=== PATIENT | female | born 1975 | race Caucasian/White ===

== ENCOUNTER → 2023-04-06 | Outpatient (CLI) | payer BC, SELFPAY ==
[2023-04-06 17:09] LABS: Absolute Lymphocyte Count 3.46 X10^3/uL (0.83-4.51); Absolute Neutrophil Count 4.4 X10^3/uL (2.0-7.7); Basophil# 0.06 X10^3/uL; Basophil% 0.7 % (0-1); Eosinophils% 3.4 % (0-5); Hematocrit 45.8 % (37-47); Hemoglobin 15.1 g/dL (12.0-15.0); Lymphocyte # 3.46 X10^3/ul (0.83-4.51); Lymphocyte % 39.1 % (19-41); Mean Corpuscular Hgb 31.9 pg (27.0-32.0); Mean Corpuscular Volume 96.6 fL (81-99); Mean Platelet Vol. 10.1 fl (6.2-12.0); Monocyte% 6.8 % (0-10); NRBC Flagged by Analyzer 0 % (0-5); Neutrophil # 4.39 X10^3/uL (2.7-7.7); Neutrophil % 49.7 % (47-70); Platelet Count 385 K/mm3 (150-450); RBC Distribution Width CV 13.2 % (11.6-14.6); RBC Distribution Width SD 47.2 fl (35.1-43.9); Red Blood Count 4.74 M/mm3 (4.2-5.4); White Blood Count 8.8 K/mm3 (4.4-11.0)
[2023-04-06 17:26] LABS: ALB/GLOB Ratio 1.1 RATIO (0.9-2.4); AST(SGOT) 15 U/L (15-37); Alanine Aminotransfer ALT/SGPT 31 U/L (13-56); Albumin, Serum 3.9 g/dL (3.2-5.0); Alkaline Phosphatase 66 U/L (45-117); Anion Gap 7 (5-15); BUN 13 mg/dL (7-18); BUN/Creat Ratio 13.9 RATIO (10-20); Calcium,Total 9.4 mg/dL (8.5-10.1); Chloride 105 mmol/L (98-107); Cholesterol 197 mg/dL (200); Creatinine, Serum 0.93 mg/dL (0.55-1.02); EST Glomerular Filtration Rate 69 mL/min (>60); Est Glom Filt Rate - Afr Amer 83 mL/min (>60); Globulin 3.7 g/dL (2.2-4.2); Glucose 91 mg/dL (74-106); High Density Lipoprotein 51 mg/dL; Potassium 3.7 mmol/L (3.5-5.1); Protein, Total 7.6 g/dL (6.4-8.2); Sodium Level 140 mmol/L (136-145); Triglycerides 94 mg/dL; Very Low Density Lipoprotein 19 mg/dL (5-40)
== END | disposition home or self-care (01) ==
LOC: BIMLAB 15:38
PROVIDERS: PCP Internal Medicine; Visit Provider Internal Medicine
DX: I10 Essential (primary) hypertension (principal)
CPT/HCPCS: 36415; 80053; 80061; 85025

== ENCOUNTER → 2023-04-07 | Outpatient (CLI) | payer BC, SELFPAY ==
--- NOTE | 2023-04-07 15:16 | BI_ITS ---
MAMMOGRAPHY - BILATERAL SCREENING REASON FOR EXAM: Female, 47 years old. Routine annual screening examination. PERTINENT HISTORY: Non-contributory. Prior left breast biopsy. TECHNIQUE: Digital bilateral breast doni (3D mammographic acquisition) in the CC and MLO projections. 2-D mediolateral oblique (MLO) and craniocaudad (CC) views of both breasts were obtained. CAD: Full Field Digital Mammography with Computer Added Detection was performed. COMPARISON: Comparison is made with prior examination dated May 08, 2020. FINDINGS: Breast Composition: The breasts are heterogeneously dense, which may obscure small masses. There are no dominant masses or suspicious calcifications. A tissue clip marker is seen in the upper lateral aspect the left breast. Stable small benign-appearing bilateral axillary lymph nodes. No other significant abnormalities are identified. There has been no significant change since the prior study. BI/SCRN MAMM (CAD)W/DONI BILAT IMPRESSION: Stable bilateral screening mammogram. Yearly follow-up mammogram recommended. (A) ASSESSMENT CATEGORY: BIRADS Category 2: Benign. A letter regarding these results will be sent to the patient by the facility within 30 days. Approximately 10% of breast cancers are not detected by mammography. A normal mammogram should not delay biopsy of a clinically suspicious abnormality. [id number] Electronically Signed: Michael Salazar MD at 12:48 EDT ,
== END | disposition home or self-care (01) ==
LOC: OPBI 15:15
PROVIDERS: PCP Internal Medicine; Referring Provider Internal Medicine; Visit Provider Internal Medicine
DX: Z12.31 Encounter for screening mammogram for malignant neoplasm of breast (principal)
CPT/HCPCS: 77063; 77067

== ENCOUNTER → 2023-10-20 | Outpatient (CLI) | payer BC, SELFPAY ==
[2023-10-23 16:09] LABS: HPV APTIMA, High Risk Negative (Negative)
== END | disposition home or self-care (01) ==
LOC: LABSPEC 11:32
PROVIDERS: Referring Provider Nurse Practitioner Women's Health; Visit Provider Nurse Practitioner Women's Health
DX: Z12.4 Encounter for screening for malignant neoplasm of cervix (principal)
CPT/HCPCS: 87624; 88175; G0145

== ENCOUNTER → 2024-01-19 | Outpatient (CLI) | payer BC, SELFPAY ==
--- NOTE | 2024-01-19 | EMB_PTH ---
PATHOLOGY RESULTS PATIENT: DESTINY AVELAR LOC: [facility] U#:[id number] AGE/SX: 48/F ROOM: RE01/19/[address]: PEDRO Elliott : 1975 BED: DIS: 01/19/2024 SPEC #: [id number] RECD: 01/19/24 12:42 STATUS: JACKIE REJeremiah #: [id number] SHWETA: 01/19/24 00:[address]: Richelle Carrera NP DEPT: SURGICAL PATHOLOGY RECD BY: Maryuri Randall ENTERED: 01/19/24 13:34 SP TYPE: ENDOM BX/C KEY DR: Dr. Cande Haque MD Tissues: Endometrium, NOS Procedures: Surgery Specimen Level IV HEADER OPERATION: Endometrial biopsy PRE-OP DIAGNOSIS: Abnormal uterine bleeding TISSUE SUBMITTED: Endometrial tissue MICROSCOPIC DIAGNOSIS Endometrium, biopsy: Decidual-like change suggestive of exogenous hormonal effect superimposed on disordered endometrium to focal simple hyperplasia without atypia. AM:luan 01/20/2024 COMMENT Case has been reviewed in consultation with Dr. Mcwilliams who concurs with the above diagnosis. IDC:DOMINIQUE MICROSCOPIC DESCRIPTION Slides are reviewed. GROSS DESCRIPTION Received is one container labeled with the patient's name and not further designated. The specimen consists of multiple irregular fragments of pink hemorrhagic soft tissue mixed with mucoid tissue that in aggregate measure 4.0 x 3.0 x 1.0 cm. The entire specimen is submitted in two cassettes. / DOMINIQUE:luan 01/19/2024 TC:5 CPT: 93537
--- OUTSIDE RECORDS SUMMARY | 2024-01-19 22:06 | XMS RPT_ITS | CCD ---
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 1 Package 0 04/03/2022 04/09/2022 Active Completed/Discontinued Medications Medication Drug Class(es) Dates Sig (Normalized) Sig (Original) [id number] 200 actuat albuterol 0.09 mg/actuat metered dose inhaler (4 sources) beta2-Adrenergic Agonist Start: 2018 End: 02-01-2023 take 2 puff(s) by inhalation every four hours as needed albuterol HFA (PROAIR HFA) 90 mcg/actuation inhaler Indications: Pneumonia of left lower lobe due to infectious organism Inhale 2 Puffs as instructed every 4 hours as needed. 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 Other lower respiratory disease (1 source) Cough; Translations: [Acute cough] Episodic Other upper respiratory infections (1 source) Acute upper respiratory infection; Translations: [Acute upper respiratory infection, unspecified] Episodic Results Test Name Value Interpretation Reference Range Facil ity Vital Signs Date Time Vital Sign Value Performing Clinician Ulises paredes 02-01-2023 18:12-0400 Body temperature 98.6 [degF] Sahil Bernal MD Work Phone: [facility] 02-01-2023 18:12-0400 Body weight 112.13 kg Sahil Bernal MD Work Phone: [facility] 02-01-2023 18:12-0400 Diastolic blood pressure 88 mm[Hg] Sahil Bernal MD Work Phone: [facility] 02-01-2023 18:12-0400 Heart rate 102 /min Sahil Bernal MD Work Phone: [facility] 02-01-2023 18:12-0400 Respiratory rate 18 /min Sahil Bernal MD Work Phone: [facility] 02-01-2023 18:12-0400 SaO2% (BldA) [Mass fraction] 99 % Sahil Bernal MD Work Phone: [facility] 02-01-2023 18:12-0400 Systolic blood pressure 134 mm[Hg] Sahil Bernal MD Work Phone: [facility] 01-19-2023 18:27-0500 Body temperature 98.4 [degF] Tracy Feliciano APRN.CROZE CUTTER HELPER Work Phone: [facility] 01-19-2023 18:27-0500 Body weight 109.77 kg Tracy Feliciano APRN.CNP Work Phone: [facility] 01-19-2023 18:27-0500 Diastolic blood pressure 84 mm[Hg] Tracy Feliciano APRN.CROZE CUTTER HELPER Work Phone: [facility] 01-19-2023 18:27-0500 Heart rate 104 /min Tracy Braden ALL PURPOSE CLERK.CROZE CUTTER HELPER Work Phone: [facility] 01-19-2023 18:27-0500 Respiratory rate 16 /min Tracy Braden ALL PURPOSE CLERK.CROZE CUTTER HELPER Work Phone: [facility] 01-19-2023 18:27-0500 SaO2% (BldA) [Mass fraction] 97 % Tracy Braden ALL PURPOSE CLERK.CROZE CUTTER HELPER Work Phone: [facility] 01-19-2023 18:27-0500 Systolic blood pressure 128 mm[Hg] Tracy Braden ALL PURPOSE CLERK.CROZE CUTTER HELPER Work Phone: [facility] 04-03-2022 09:41-0400 Body temperature 98.1 [degF] Tracy Braden ALL PURPOSE CLERK.CROZE CUTTER HELPER Work Phone: [facility] 04-03-2022 09:41-0400 Body weight 113.76 kg Tracy Braden ALL PURPOSE CLERK.CROZE CUTTER HELPER Work Phone: [facility] 04-03-2022 09:41-0400 Diastolic blood pressure 84 mm[Hg] Tracy Braden ALL PURPOSE CLERK.CROZE CUTTER HELPER Work Phone: [facility] 04-03-2022 09:41-0400 Heart rate 84 /min Tracy Braden ALL PURPOSE CLERK.CROZE CUTTER HELPER Work Phone: [facility] 04-03-2022 09:41-0400 Respiratory rate 18 /min Tracy Braden ALL PURPOSE CLERK.CROZE CUTTER HELPER Work Phone: [facility] 04-03-2022 09:41-0400 SaO2% (BldA) [Mass fraction] 97 % Tracy Braden ALL PURPOSE CLERK.CROZE CUTTER HELPER Work Phone: [facility] 04-03-2022 09:41-0400 Systolic blood pressure 136 mm[Hg] Tracy Braden ALL PURPOSE CLERK.CROZE CUTTER HELPER Work Phone: [facility] Encounters Encounter Date Encounter Type Care Provider Facility Start: 02-01-2023 End: 02-01-2023 ambulatory TRACY FELICIANO Facility:[facility] Start: 02-01-2023 End: 02-01-2023 Patient encounter procedure Sahil Bernal MD Work Phone: [facility] Procedures Date Procedure Procedure Detail Performing Clinician Start: 01-19-2023 Radiologic exam ches t 2 views Tracy Feliciano JANELLE.CROZE CUTTER HELPER Work Phone: Plan of Treatment Date Care Activity Detail Author Start: 11-22-2022 DEPRESSION ASSESSMENT DEPRESSION ASS ESSMENT [facility] Start: 2022 COLOGUARD (FIT-DNA) COLOGUARD (FIT-D NA) [facility] Start: 2022 Colonoscopy COLONOSCOPY [facility] Start: 2022 COLORECTAL CANCER SCREENING COLORECTAL CANCER SCREENING [facility] Start: [address] COLONOGRAPHY [facility] Start: 2022 DIABETES SCREEN DIABETES SCREEN [facility] Start: 2022 FECAL OCCULT BLOOD FECAL OCCULT BLOO D [facility] Start: 2022 LIPID SCREEN LIPID SCREEN [facility] Start: 2022 SIGMOIDOSCOPY SIGMOIDOSCOPY [facility] Start: 07-23-2022 Influenza vaccination C [facility] Start: 2017 Mammography MAMMOGRAM [facility] Start: 2007 HPV TESTING HPV TESTING [facility] Start: 1998 PAP TESTING PAP TESTING [facility] Start: 1996 Urine microalbumin profile DTAP,TDAP ,TD (1 - Tdap) [facility] Start: 1995 HEPATITIS C SCREENING HEPATITIS C SC REENING [facility] Start: 1995 HIV SCREENING HIV SCREENING [facility] Start: 1989 Adult depression scr eening assessment DEPRESSION SCREENING [facility] Start: 1982 COVID-19 VACCINE (#1) COVID-19 VACCI NE (#1) [facility] Start: 05-01-1978 COVID-19 VACCINE (#1) COVID-19 VACCI NE (#1) [facility] Start: 1977 HEPATITIS B (1 of 3 - 3-dose series) HEPATIT[facility]1 [facility] 3 - [facility] Payers Date Payer Category Payer Unknown [employer] BLUE CARD PPO OOS [id number] 2022-Present [phone] [address] [place] [address] PPO [id number] 2022 Unknown JOANN BLUE CARD PPO OOS [id number] 2022-Present [phone] [address] [place] [address] PPO [id number] 2022 Unknown [id number] 2022 Unknown [id number] Social History Date Type Detail Facility Start: 2018 End: 01-19-2023 Tobacco smoking status NHIS Never smoked tobacco [facility] Work Phone: Start: 2018 End: 01-19-2023 Tobacco use and exposure Smokeless tobacco non-user [facility] Work Phone: Start: 1975 Sex Assigned At Not on file C [facility] Start: 03-24-2022 End: 04-03-2022 Exposure to SARS-CoV-2 (event) Not sure [facility] Work Phone: Start: 04-06-2022 End: 02-01-2023 Alcohol intake Ex-drinker (finding) [facility] Clinical Notes 04-03-2022 to 02-01-2023 Sahil Bernal MD - 02/01/2023 6:24 PM Ashwin Feliciano APRN.[facility] - 01/19/2023 6:28 PM Jacey Gaming OD - 04/06/2022 1:08 PM Ashwin Feliciano APRN.[facility] - 04/03/2022 10:14 AM EDT Note Date & Type Note Facility 02-01-2023 Note HNO ID: [id number] Author: Sahil Bernal MD Service: ? Author Type: Physician Type: Progress Notes Filed: 02/01/2023 6:41 PM Note Text: Patient presents with: Allergic Reaction: Rash from new laundry detergent x4 days HPI: Rash: Location: torso Duration: 5 days Pruritis: Yes Pain: No Change: spread to arms today Bleeding/ulceration/blister/pustul e: red patches Contacts with rash: No Exposure: used stronger detergent on shirt. No new soaps or lotions. Outdoor exposure: No. Change in medications: tessalon and prednisone for cough 2 weeks ago. Recent illness: Yes . Treatment: hydrocortisone MEDICATIONS: No prescriptions on file. ALLERGIES: ALLERGIES No Known Allergies VITALS: BP 134/88 Pulse 102 Temp 37 ?C (98.6 ?F) Resp 18 Wt 112.1 kg (247 lb 3.2 oz) LMP 10/21/2018 SpO2 99% PHYSICAL EXAM: GEN: pleasant, no acute distress, alert SKIN: non-blanching red slightly raise plaques of varying size <1cm to 2-3cm; some plaques have white scale. The lesions are distributed over the torso from neck to below the waist. The lesions are most concentrated toward midline with scattered lesions down both upper and lower arms. 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 Differential includes allergy because it correlates temporally and by distribution, but character is not typical. - PREDNISONE 10 MG TABLET taper Follow up with dermatology if not improving. Sahil Bernal MD [facility] 02-01-2023 History of Present illness Narrative Patient presents with: Allergic Reaction: Rash from new laundry detergent x4 days HPI: Rash: Location: torso Duration: 5 days Pruritis: Yes Pain: No Change: spread to arms today Bleeding/ulceration/blister/pustul e: red patches Contacts with rash: No Exposure: used stronger detergent on shirt. No new soaps or lotions. Outdoor exposure: No. Change in medications: tessalon and prednisone for cough 2 weeks ago. Recent illness: Yes . Treatment: hydrocortisone MEDICATIONS: No prescriptions on file. ALLERGIES: ALLERGIES No Known Allergies VITALS: BP 134/88 Pulse 102 Temp 37 C (98.6 F) Resp 18 Wt 112.1 kg (247 lb 3.2 oz) LMP 10/21/2018 SpO2 99% PHYSICAL EXAM: GEN: pleasant, no acute distress, alert SKIN: non-blanching red slightly raise plaques of varying size <1cm to 2-3cm; some plaques have white scale. The lesions are distributed over the torso from neck to below the waist. The lesions are most concentrated toward midline with scattered lesions down both upper and lower arms. 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 Differential includes allergy because it correlates temporally and by distribution, but character is not typical. - PREDNISONE 10 MG TABLET taper Follow up with dermatology if not improving. Sahil Bernal MD documented in this encounter [facility] 01-19-2023 Note HNO ID: [id number] Author: RT Stalin(R) Service: Radiology Author Type: Technologist Type: Progress Notes Filed: 01/19/2023 6:48 PM Note Text: Radiology Service Progress Note PATIENT NAME: Olivia Robledo DATE OF SERVICE: January 19, 2023 TIME: 6:41 PM PATIENT IDENTITY VERIFICATION COMPLETED USING TWO (2) IDENTIFIERS: Name and Date of confirmed by patient verbally. FALL SCREENING: Has the patient had 2 falls in the last year or 1 fall with injury or currently using an Ambulatory Assistive Device (Walker, Cane, Wheelchair, Crutches, etc.)? No PATIENT GENDER DATA: Female. status: : No status: NO. PATIENT RELEVANT IMPLANT DATA REVIEWED: Yes RADIOLOGY DEPARTMENT: General X-ray: Exam(s) Completed: Chest X-Ray PERIPHERAL IV DATA: Not applicable SIGNED BY: RT Stalin(R) January 19, 2023 6:41 PM [facility] 01-19-2023 Note HNO ID: [id number] Author: Tracy Feliciano APRN.CROZE CUTTER HELPER Service: ? Author Type: Nurse Practitioner Type: Progress Notes Filed: 01/19/2023 7:20 PM Note Text: Subjective HPI HPI Olivia Robledo is a 47 year old female who presents today for CC of bad cough for 4 days, in beginning had congestion and fever. Has tried otc medication for relief. Symptoms are worsened by nothing. Risk factors sick exposures at work. Nonsmoker. Denies possibility of being . .Patient presents with: Cough: deep cough x 4 days No past medical history on file. PAST SURGICAL HISTORY Procedure Laterality Date TONSILLECTOMY HX ALLERGIES Patient has no known allergies. MEDICATIONS erythromycin (ROMYCIN) 5 mg/gram (0.5 %) ophthalmic ointment Use 1 application in the left eye three times daily. (Patient not taking: Reported on 01/19/2023) Benzonatate 200 mg capsule Take 1 capsule by mouth three times daily as needed. (Patient not taking: Reported on 04/03/2022 ) albuterol HFA (PROAIR HFA) 90 mcg/actuation inhaler Inhale 2 Puffs as instructed every 4 hours as needed. (Patient not taking: Reported on 04/03/2022 ) FAMILY HISTORY Problem Relation Age of Onset Hypertension Father other (Other) Father Strabismus Brother Social History Tobacco Use Smoking status: Never Smokeless tobacco: Never Vaping Use Vaping Use: Never used Substance Use Topics Alcohol use: Not Currently Drug use: Never ROS Objective Blood pressure 128/84, pulse 104, temperature 36.9 ?C (98.4 ?F), resp. rate 16, weight 109.8 kg (242 lb), last menstrual period 10/21/2018, SpO2 97 %. Physical Exam Constitutional: General: She is not in acute distress. Appearance: She is not toxic-appearing or diaphoretic. HENT: Head: Normocephalic and atraumatic. Nose: Nose normal. Mouth/Throat: Pharynx: Uvula midline. No pharyngeal swelling, oropharyngeal exudate, posterior oropharyngeal erythema or uvula swelling. Eyes: General: Lids are normal. No scleral icterus. Right eye: No discharge. Left eye: No discharge. Conjunctiva/sclera: Conjunctivae normal. Pupils: Pupils are equal, round, and reactive to light. Neck: Trachea: Trachea normal. Cardiovascular: Rate and Rhythm: Normal rate and regular rhythm. Heart sounds: Normal heart sounds. Pulmonary: Effort: Pulmonary effort is normal. Breath sounds: Examination of the right-lower field reveals decreased breath sounds. Decreased breath sounds present. No wheezing, rhonchi or rales. Musculoskeletal: Cervical back: Normal range of motion and neck supple. Lymphadenopathy: Cervical: No cervical adenopathy. Right cervical: No superficial cervical adenopathy. Left cervical: No superficial cervical adenopathy. Skin: Findings: No rash. Neurological: Mental Status: She is alert and oriented to person, place, and time. ASSESSMENT/PLAN: 1. URI, acute - ICD9: 465.9, ICD10: J06.9 (primary diagnosis) - Discussed viral etiology and rationale for treatment. - Symptomatic treatment with prn analgesia - Supportive care with fluids and rest - Follow up in 3-5 days if symptoms persist or sooner if worsening of symptoms - PREDNISONE 20 MG TABLET - BENZONATATE 100 MG CAPSULE 2. Acute cough - ICD9: 786.2, ICD10: R05.1 Xray neg - XR CHEST 2V FRONTAL/LAT IMPRESSION: No acute radiographic abnormality. Dictated by : MD Tracy HARRIS APRN.[facility] 01-19-2023 History of Present illness Narrative Subjective HPI HPI Olivia Robledo is a 47 year old female who presents today for CC of bad cough for 4 days, in beginning had congestion and fever. Has tried otc medication for relief. Symptoms are worsened by nothing. Risk factors sick exposures at work. Nonsmoker. Denies possibility of being . .Patient presents with: Cough: deep cough x 4 days No past medical history on file. PAST SURGICAL HISTORY Procedure Laterality Date TONSILLECTOMY HX ALLERGIES Patient has no known allergies. MEDICATIONS erythromycin (ROMYCIN) 5 mg/gram (0.5 %) ophthalmic ointment Use 1 application in the left eye three times daily. (Patient not taking: Reported on 01/19/2023) Benzonatate 200 mg capsule Take 1 capsule by mouth three times daily as needed. (Patient not taking: Reported on 04/03/2022 ) albuterol HFA (PROAIR HFA) 90 mcg/actuation inhaler Inhale 2 Puffs as instructed every 4 hours as needed. (Patient not taking: Reported on 04/03/2022 ) FAMILY HISTORY Problem Relation Age of Onset Hypertension Father other (Other) Father Strabismus Brother Social History Tobacco Use Smoking status: Never Smokeless tobacco: Never Vaping Use Vaping Use: Never used Substance Use Topics Alcohol use: Not Currently Drug use: Never ROS Objective Blood pressure 128/84, pulse 104, temperature 36.9 C (98.4 F), resp. rate 16, weight 109.8 kg (242 lb), last menstrual period 10/21/2018, SpO2 97 %. Physical Exam Constitutional: General: She is not in acute distress. Appearance: She is not toxic-appearing or diaphoretic. HENT: Head: Normocephalic and atraumatic. Nose: Nose normal. Mouth/Throat: Pharynx: Uvula midline. No pharyngeal swelling, oropharyngeal exudate, posterior oropharyngeal erythema or uvula swelling. Eyes: General: Lids are normal. No scleral icterus. Right eye: No discharge. Left eye: No discharge. Conjunctiva/sclera: Conjunctivae normal. Pupils: Pupils are equal, round, and reactive to light. Neck: Trachea: Trachea normal. Cardiovascular: Rate and Rhythm: Normal rate and regular rhythm. Heart sounds: Normal heart sounds. Pulmonary: Effort: Pulmonary effort is normal. Breath sounds: Examination of the right-lower field reveals decreased breath sounds. Decreased breath sounds present. No wheezing, rhonchi or rales. Musculoskeletal: Cervical back: Normal range of motion and neck supple. Lymphadenopathy: Cervical: No cervical adenopathy. Right cervical: No superficial cervical adenopathy. Left cervical: No superficial cervical adenopathy. Skin: Findings: No rash. Neurological: Mental Status: She is alert and oriented to person, place, and time. ASSESSMENT/PLAN: 1. URI, acute - ICD9: 465.9, ICD10: J06.9 (primary diagnosis) - Discussed viral etiology and rationale for treatment. - Symptomatic treatment with prn analgesia - Supportive care with fluids and rest - Follow up in 3-5 days if symptoms persist or sooner if worsening of symptoms - PREDNISONE 20 MG TABLET - BENZONATATE 100 MG CAPSULE 2. Acute cough - ICD9: 786.2, ICD10: R05.1 Xray neg - XR CHEST 2V FRONTAL/LAT IMPRESSION: No acute radiographic abnormality. Dictated by : MD Tracy HARRIS APRN.CROZE CUTTER HELPER documented in this encounter [facility] 04-06-2022 Note HNO ID: [id number] Author: Rosalva Gaming OD Service: ? Author Type: ICT BUSINESS DEVELOPMENT MANAGER Type: Progress Notes Filed: 04/06/2022 1:09 PM Note Text: 1. Emery (subconjunctival hemorrhage), left Mild residual irritation left eye (-) abrasion Continue erythromycin ointment today and tomorrow, then discontinue -follow-up as needed with any new or worsening symptoms or changes in vision Rosalva Gaming, OD April 06, 2022 1:08 PM [facility] 04-06-2022 History of Present illness Narrative 1. Emery (subconjunctival hemorrhage), left Mild residual irritation left eye (-) abrasion Continue erythromycin ointment today and tomorrow, then discontinue -follow-up as needed with any new or worsening symptoms or changes in vision Rosalva Gaming, OD April 06, 2022 1:08 PM documented in this encounter [facility] 04-03-2022 Note HNO ID: [id number] Author: Tracy Feliciano APRN.CROZE CUTTER HELPER Service: ? Author Type: Nurse Practitioner Type: Progress Notes Filed: 04/03/2022 11:11 AM Note Text: Subjective HPI HPI Olivia Robledo is a 46 year old female who presents today for CC of pawed in left eye by cat yesterday, not scratched. Has tried otc medication for relief. Symptoms are worsened by nothing. Slight eye pain. Denies vision change/drainage. .Patient presents with: Eye Problem: hit with paw of cat yesterday-did not scratch History reviewed. No pertinent past medical history. No past surgical history on file. ALLERGIES Patient has no known allergies. MEDICATIONS erythromycin (ROMYCIN) 5 mg/gram (0.5 %) ophthalmic ointment Use 1 application in the left eye three times daily. methylPREDNISolone (MEDROL, THOMAS,) 4 mg Dose-Pack Follow dosing instructions, take with food. Benzonatate 200 mg capsule Take 1 capsule by mouth three times daily as needed. albuterol HFA (PROAIR HFA) 90 mcg/actuation inhaler Inhale 2 Puffs as instructed every 4 hours as needed. No family history on file. Social History Tobacco Use - Smoking status: Never Smoker - Smokeless tobacco: Never Used Substance Use Topics - Alcohol use: Not on file - Drug use: Not on file ROS Objective Blood pressure 136/84, pulse 84, temperature 36.7 ?C (98.1 ?F), temperature source Tympanic, resp. rate 18, weight 113.8 kg (250 lb 12.8 oz), last menstrual period 10/21/2018, SpO2 97 %. Physical Exam Constitutional: General: She is not in acute distress. Appearance: She is not toxic-appearing. HENT: Right Ear: Hearing, tympanic membrane and external ear normal. Left Ear: Hearing, tympanic membrane, ear canal and external ear normal. Nose: No mucosal edema. Mouth/Throat: Pharynx: Uvula midline. Eyes: General: Right eye: No discharge. Left eye: No discharge. Conjunctiva/sclera: Right eye: Right conjunctiva is not injected. Left eye: Left conjunctiva is injected. Chemosis and hemorrhage present. Comments: PERRLA Lymphadenopathy: Cervical: Right cervical: No superficial cervical adenopathy. Left cervical: No superficial cervical adenopathy. Comments: No cervical lymphadenopathy bilaterally Neurological: Mental Status: She is oriented to person, place, and time. ASSESSMENT/PLAN: 1. Eye irritation - ICD9: 379.99, ICD10: H57.89 (primary diagnosis) Cover with erythromycin Worsening s/s go to ER Will make eye appointment Wednesday. - ERYTHROMYCIN 5 MG/GRAM (0.5 %) EYE OINTMENT 2. Chemosis of left conjunctiva - ICD9: 372.73, ICD10: H11.422 Will order steroid F/u as above - METHYLPREDNISOLONE 4 MG TABLETS IN A DOSE PACK Agrees to plan Tracy Feliciano APRN.[facility] 04-03-2022 History of Present illness Narrative Images from the original note were not included. Subjective HPI HPI Olivia Jasbir Robledo is a 46 year old female who presents today for CC of pawed in left eye by cat yesterday, not scratched. Has tried otc medication for relief. Symptoms are worsened by nothing. Slight eye pain. Denies vision change/drainage. .Patient presents with: Eye Problem: hit with paw of cat yesterday-did not scratch History reviewed. No pertinent past medical history. No past surgical history on file. ALLERGIES Patient has no known allergies. MEDICATIONS erythromycin (ROMYCIN) 5 mg/gram (0.5 %) ophthalmic ointment Use 1 application in the left eye three times daily. methylPREDNISolone (MEDROL, THOMAS,) 4 mg Dose-Pack Follow dosing instructions, take with food. Benzonatate 200 mg capsule Take 1 capsule by mouth three times daily as needed. albuterol HFA (PROAIR HFA) 90 mcg/actuation inhaler Inhale 2 Puffs as instructed every 4 hours as needed. No family history on file. Social History Tobacco Use Smoking status: Never Smoker Smokeless tobacco: Never Used Substance Use Topics Alcohol use: Not on file Drug use: Not on file ROS Objective Blood pressure 136/84, pulse 84, temperature 36.7 C (98.1 F), temperature source Tympanic, resp. rate 18, weight 113.8 kg (250 lb 12.8 oz), last menstrual period 10/21/2018, SpO2 97 %. Physical Exam Constitutional: General: She is not in acute distress. Appearance: She is not toxic-appearing. HENT: Right Ear: Hearing, tympanic membrane and external ear normal. Left Ear: Hearing, tympanic membrane, ear canal and external ear normal. Nose: No mucosal edema. Mouth/Throat: Pharynx: Uvula midline. Eyes: General: Right eye: No discharge. Left eye: No discharge. Conjunctiva/sclera: Right eye: Right conjunctiva is not injected. Left eye: Left conjunctiva is injected. Chemosis and hemorrhage present. Comments: PERRLA Lymphadenopathy: Cervical: Right cervical: No superficial cervical adenopathy. Left cervical: No superficial cervical adenopathy. Comments: No cervical lymphadenopathy bilaterally Neurological: Mental Status: She is oriented to person, place, and time. ASSESSMENT/PLAN: 1. Eye irritation - ICD9: 379.99, ICD10: H57.89 (primary diagnosis) Cover with erythromycin Worsening s/s go to ER Will make eye appointment Wednesday. - ERYTHROMYCIN 5 MG/GRAM (0.5 %) EYE OINTMENT 2. Chemosis of left conjunctiva - ICD9: 372.73, ICD10: H11.422 Will order steroid F/u as above - METHYLPREDNISOLONE 4 MG TABLETS IN A DOSE PACK Agrees to plan Tracy Feliciano APRN.CROZE CUTTER HELPER documented in this encounter [facility] Diagnosis Emery (subconjunctival hemorrhage), left- Primary [facility] Diagnosis URI, acute- Primary Acute upper respiratory infections of unspecified site Acute cough documented in this encounter [facility] note* Diagnosis Guttate psoriasis- Primary Other psoriasis documented in this encounter [facility] Summary Purpose Family History No Family History Records Found Advance Directives No Advanced Directives Records Found Additional Source Comments Source Comments (unrecognize d section and content) In the event this informatio n is protected by the Federal Confidentiality of Alcohol and Drug Abuse Patient Records regulations: The Federal rules restrict any use of the information to criminally investigate or prosecute any alcohol or drug abuse patient.[facility] the event this information is protected by the Federal Confidentiality of Alcohol and Drug Abuse Patient Records regulations: The Federal rules restrict any use of the information to criminally investigate or prosecute any alcohol or drug abuse patient.[facility] the event this information is protected by the Federal Confidentiality of Alcohol and Drug Abuse Patient Records regulations: The Federal rules restrict any use of the information to criminally investigate or prosecute any alcohol or drug abuse patient.[facility] the event this information is protected by the Federal Confidentiality of Alcohol and Drug Abuse Patient Records regulations: The Federal rules restrict any use of the information to criminally investigate or prosecute any alcohol or drug abuse patient.[facility] Reason for Visit (unrecogniz ed section and content) Reason Comments Red Eye Left Eye Reason Comments Cough deep cough x 4 days Reason Comments Allergic Reaction Rash from new laundr y detergent x4 days INFORMATION SOURCE (unrecogn ized section and content) FOR RECORDS PERTAINING TO PATIENTS WHO ARE OR HAVE BEEN ENROLLED IN A CHEMICAL DEPENDENCY/SUBSTANCEABUSE PROGRAM, SOME INFORMATION MAY BE OMITTED. This clinical summary was aggregated from multiple sources. Caution should be exercised in using it in the provision of clinical care. This summary normalizes information from multiple sources, and as a consequence, information in this document may materially change the coding, format and clinical context of patient data. In addition, data may be omitted in some cases. CLINICAL DECISIONS SHOULD BE BASED ON THE PRIMARY CLINICAL RECORDS. [facility]. provides no warranty or guarantee of the accuracy or completeness of information in this document.
== END | disposition home or self-care (01) ==
PROVIDERS: PCP Internal Medicine; Referring Provider Nurse Practitioner Women's Health; Visit Provider Nurse Practitioner Women's Health
DX: N93.9 Abnormal uterine and vaginal bleeding, unspecified (principal)
CPT/HCPCS: 88305

== ENCOUNTER → 2024-01-26 | Outpatient (CLI) | payer BC, SELFPAY ==
--- NOTE | 2024-01-26 18:01 | US_ITS ---
HISTORY: MENORRHAGIA. TECHNIQUE: Transabdominal and transvaginal pelvic ultrasound was performed with chiang scale , spectral Doppler, and color Doppler evaluation. 65 images. COMPARISON: None. FINDINGS: UTERUS: 7 x 4.5 x 3.3 cm. Anteverted. Small nabothian cysts in the cervix. ENDOMETRIAL THICKNESS: 3 mm. Intrauterine device in place. RIGHT OVARY: 1.4 x 1.9 x 2.4 cm with small follicles. Vascular flow demonstrated. No adnexal masses LEFT OVARY: 2.2 x 2.3 x 3.4 cm with small follicles. Vascular flow demonstrated. No adnexal masses FREE FLUID: Mild, which may be physiological. URINARY BLADDER: Nearly empty at 27 cc. US/Transvaginal Non- IMPRESSION: Intrauterine device in place. No evidence for endometrial thickening. Electronically Signed: Angela Gray MD at 13:19 EST ,
--- OUTSIDE RECORDS SUMMARY | 2024-01-26 21:12 | XMS RPT_ITS | CCD ---
Author Name Unknown Address [address] [place] [address] Organization [facility] Care Team Providers Care Grocery Store Manager Name Role Phone Unavailable Primary Care Provider [...] Drug Class(es) Dates Sig (Normalized) Sig (Original) [id number] 200 actuat albuterol 0.09 mg/actuat metered dose [...] 98.6 [degF] Sahil Bernal MD Work Phone: [facility] 02-01-2023 18:12-0400 Body weight 112.13 kg Sahil Bernal MD Work Phone: [facility] 02-01-2023 18:12-0400 Diastolic blood pressure 88 mm[Hg] Sahil Bernal MD Work Phone: [facility] 02-01-2023 18:12-0400 Heart rate 102 /min Sahil Bernal MD Work Phone: [facility] 02-01-2023 18:12-0400 Respiratory rate 18 /min Sahil Bernal MD Work Phone: [facility] 02-01-2023 18:12-0400 SaO2% (BldA) [Mass fraction] 99 % Sahil Bernal MD Work Phone: [facility] 02-01-2023 18:12-0400 Systolic blood pressure 134 mm[Hg] Sahil Bernal MD Work Phone: [facility] 01-19-2023 18:27-0500 Body temperature 98.4 [degF] Tracy Feliciano APRN.TOOL PROFILING MACHINE SET UP OPERATOR Work Phone: [facility] 01-19-2023 18:27-0500 Body weight 109.77 kg Tracy Feliciano APRN.CNP Work Phone: [facility] 01-19-2023 18:27-0500 Diastolic blood pressure 84 mm[Hg] Tracy Feliciano APRN.TOOL PROFILING MACHINE SET UP OPERATOR Work Phone: [facility] 01-19-2023 18:27-0500 Heart rate 104 /min Tracy Braden FILTRATION SUPERVISOR.TOOL PROFILING MACHINE SET UP OPERATOR Work Phone: [facility] 01-19-2023 18:27-0500 Respiratory rate 16 /min Tracy Braden FILTRATION SUPERVISOR.TOOL PROFILING MACHINE SET UP OPERATOR Work Phone: [facility] 01-19-2023 18:27-0500 SaO2% (BldA) [Mass fraction] 97 % Tracy Braden FILTRATION SUPERVISOR.TOOL PROFILING MACHINE SET UP OPERATOR Work Phone: [facility] 01-19-2023 18:27-0500 Systolic blood pressure 128 mm[Hg] Tracy Braden FILTRATION SUPERVISOR.TOOL PROFILING MACHINE SET UP OPERATOR Work Phone: [facility] 04-03-2022 09:41-0400 Body temperature 98.1 [degF] Tracy Braden FILTRATION SUPERVISOR.TOOL PROFILING MACHINE SET UP OPERATOR Work Phone: [facility] 04-03-2022 09:41-0400 Body weight 113.76 kg Tracy Braden FILTRATION SUPERVISOR.TOOL PROFILING MACHINE SET UP OPERATOR Work Phone: [facility] 04-03-2022 09:41-0400 Diastolic blood pressure 84 mm[Hg] Tracy Braden FILTRATION SUPERVISOR.TOOL PROFILING MACHINE SET UP OPERATOR Work Phone: [facility] 04-03-2022 09:41-0400 Heart rate 84 /min Tracy Braden FILTRATION SUPERVISOR.TOOL PROFILING MACHINE SET UP OPERATOR Work Phone: [facility] 04-03-2022 09:41-0400 Respiratory rate 18 /min Tracy Braden FILTRATION SUPERVISOR.TOOL PROFILING MACHINE SET UP OPERATOR Work Phone: [facility] 04-03-2022 09:41-0400 SaO2% (BldA) [Mass fraction] 97 % Tracy Braden FILTRATION SUPERVISOR.TOOL PROFILING MACHINE SET UP OPERATOR Work Phone: [facility] 04-03-2022 09:41-0400 Systolic blood pressure 136 mm[Hg] Tracy Braden FILTRATION SUPERVISOR.TOOL PROFILING MACHINE SET UP OPERATOR Work Phone: [facility] Encounters Encounter Date Encounter Type Care Provider Facility Start: 02-01-2023 End: 02-01-2023 ambulatory TRACY FELICIANO Facility:[facility] Start: 02-01-2023 End: 02-01-2023 Patient encounter procedure Sahil Bernal MD Work Phone: [facility] Procedures Date Procedure Procedure Detail Performing Clinician Start: 01-19-2023 Radiologic exam ches t 2 views Tracy Feliciano JANELLE.TOOL PROFILING MACHINE SET UP OPERATOR Work Phone: Plan of Treatment Date Care Activity Detail Author Start: 11-22-2022 DEPRESSION ASSESSMENT DEPRESSION ASS ESSMENT [facility] Start: 2022 COLOGUARD (FIT-DNA) COLOGUARD (FIT-D NA) [facility] Start: 2022 Colonoscopy COLONOSCOPY [facility] Start: 2022 COLORECTAL CANCER SCREENING COLORECTAL CANCER SCREENING [facility] Start: [address] COLONOGRAPHY [facility] Start: 2022 DIABETES SCREEN DIABETES SCREEN [facility] Start: 2022 FECAL OCCULT BLOOD FECAL OCCULT BLOO D [facility] Start: 2022 LIPID SCREEN LIPID SCREEN [facility] Start: 2022 SIGMOIDOSCOPY SIGMOIDOSCOPY [facility] Start: 07-23-2022 Influenza vaccination [facility] Start: 2017 Mammography MAMMOGRAM [facility] Start: 2007 HPV TESTING HPV TESTING [facility] Start: 1998 PAP TESTING PAP TESTING [facility] Start: 1996 Urine microalbumin profile DTAP,TDAP ,TD (1 - Tdap) [facility] Start: 1995 HEPATITIS C SCREENING HEPATITIS C SC REENING [facility] Start: 1995 HIV SCREENING HIV SCREENING [facility] Start: 1989 Adult depression scr eening assessment DEPRESSION SCREENING [facility] Start: 1982 COVID-19 VACCINE (#1) COVID-19 VACCI NE (#1) [facility] Start: 05-01-1978 COVID-19 VACCINE (#1) COVID-19 VACCI NE (#1) [facility] Start: 1977 HEPATITIS B (1 of 3 - 3-dose series) HEPATITIS B (1 of 3 - 3-[facility] series[facility] Payers Date Payer Category Payer Unknown [employer]M BLUE CARD PPO OOS [id number] 2022-Present [phone] [address] [place] [address] PPO [id number] 2022 Unknown JOANN BLUE CARD PPO OOS [id number] 2022-Present [phone] [address] [place] [address] PPO [id number] 2022 Unknown [id number] 2022 Unknown [id number] Social History Date Type Detail Facility Start: 2018 End: 01-19-2023 Tobacco smoking status NHIS Never smoked tobacco [facility] Work Phone: Start: 2018 End: 01-19-2023 Tobacco use and exposure Smokeless tobacco non-user [facility] Work Phone: Start: 1975 Sex Assigned At Not on file [facility] Start: 03-24-2022 End: 04-03-2022 Exposure to SARS-CoV-2 (event) Not sure [facility] Work Phone: Start: 04-06-2022 End: 02-01-2023 Alcohol intake Ex-drinker (finding) [facility] Clinical Notes 04-03-2022 to 02-01-2023 Sahil Bernal MD - 02/01/2023 6:24 PM Ashwin Feliciano APRN.[facility] - 01/19/2023 6:28 PM Jacey Gaming OD - 04/06/2022 1:08 PM Ashwin Feliciano APRN.[facility] - 04/03/2022 10:14 AM EDT Note Date & Type Note Facility 02-01-2023 Note HNO ID: [id number] Author: Sahil Bernal MD Service: ? Author [...] Sahil Bernal MD documented in this encounter [facility] 01-19-2023 Note HNO ID: [id number] Author: RT Stalin(R) Service: Radiology Author Type: [facility] 01-19-2023 Note HNO ID: [id number] Author: Tracy Feliciano APRN.TOOL PROFILING MACHINE SET UP OPERATOR Service: ? Author Type: Nurse Practitioner Type: [...] abnormality. Dictated by : MD Tracy HARRIS APRN.[facility] 01-19-2023 History of Present illness Narrative [...] abnormality. Dictated by : MD Tracy HARRIS APRN.TOOL PROFILING MACHINE SET UP OPERATOR documented in this encounter [facility] 04-06-2022 Note HNO ID: [id number] Author: Rosalva Gaming OD Service: ? Author Type: LOW VISION THERAPIST Type: Progress Notes Filed: 04/06/2022 1:09 PM [...] 2022 1:08 PM documented in this encounter [facility] 04-03-2022 Note HNO ID: [id number] Author: Tracy Feliciano APRN.TOOL PROFILING MACHINE SET UP OPERATOR Service: ? Author Type: Nurse Practitioner Type: [...] DOSE PACK Agrees to plan Tracy Feliciano APRN.[facility] 04-03-2022 History of Present illness Narrative [...] DOSE PACK Agrees to plan Tracy Feliciano APRN.TOOL PROFILING MACHINE SET UP OPERATOR documented in this encounter [facility] Diagnosis Emery (subconjunctival hemorrhage), left- Primary [facility] Diagnosis URI, acute- Primary Acute upper respiratory infections of unspecified site Acute cough documented in this encounter [facility] note* Diagnosis Guttate psoriasis- Primary Other psoriasis documented in this encounter [facility] Summary Purpose Family History No Family History [...] or prosecute any alcohol or drug abuse patient.[facility] the event this information is protected by the Federal Confidentiality of Alcohol and Drug Abuse Patient Records regulations: The Federal rules restrict any use of the information to criminally investigate or prosecute any alcohol or drug abuse patient.[facility] the event this information is protected by the Federal Confidentiality of Alcohol and Drug Abuse Patient Records regulations: The Federal rules restrict any use of the information to criminally investigate or prosecute any alcohol or drug abuse patient.[facility] the event this information is protected by the Federal Confidentiality of Alcohol and Drug Abuse Patient Records regulations: The Federal rules restrict any use of the information to criminally investigate or prosecute any alcohol or drug abuse patient.[facility] Reason for Visit (unrecogniz ed section and [...] BE BASED ON THE PRIMARY CLINICAL RECORDS. [facility]. provides no warranty or guarantee of the accuracy or completeness of information in this document.
== END | disposition home or self-care (01) ==
LOC: US 17:56
PROVIDERS: PCP Internal Medicine; Referring Provider Nurse Practitioner Women's Health; Visit Provider Nurse Practitioner Women's Health
DX: N92.0 Excessive and frequent menstruation with regular cycle (principal)
CPT/HCPCS: 76830

== ENCOUNTER → 2024-04-11 | Outpatient (CLI) | payer OTHER, SELFPAY ==
--- NOTE | 2024-04-11 08:09 | BI_ITS ---
MAMMOGRAPHY - BILATERAL SCREENING 3-D TOMOSYNTHESIS REASON FOR EXAM: Female, 48 years old. Screening for breast cancer PERTINENT HISTORY: No significant family history. TECHNIQUE: 2-D mammograms and 3-D Tomosynthesis of the breast (s) were performed. CAD was performed. COMPARISON: 04/07/2023 FINDINGS: The breast composition is heterogeneously dense that can obscure small breast masses. Scattered benign calcifications are seen. No dense spiculated masses or suspicious microcalcifications are identified. No architectural distortion is identified. There is no skin thickening or retraction. There has been no significant change since the prior study. BI/SCRN MAMM (CAD)W/DONI BILAT IMPRESSION: No mammographic signs of malignancy. Routine yearly mammograms recommended. ASSESSMENT CATEGORY: BIRADS Category 1: Negative. A letter regarding these results will be sent to the patient by the facility within 30 days. FOLLOW UP RECOMMENDATION: Yearly follow up mammogram recommended. (A) Approximately 10% of breast cancers are not detected by mammography. A normal mammogram should not delay biopsy of a clinically suspicious abnormality. Electronically Signed: Ned Lange MD at 8:55 EDT ,
== END | disposition home or self-care (01) ==
PROVIDERS: PCP Internal Medicine; Referring Provider Nurse Practitioner Women's Health; Visit Provider Nurse Practitioner Women's Health
DX: Z12.31 Encounter for screening mammogram for malignant neoplasm of breast (principal)
CPT/HCPCS: 77063; 77067

== ENCOUNTER → 2024-07-10 | Outpatient (CLI) | payer OTHER, SELFPAY ==
[2024-07-10 17:39] LABS: T4 Free Direct 0.78 ng/dL (0.76-1.46)
== END | disposition home or self-care (01) ==
LOC: BIMLAB 15:41
PROVIDERS: PCP Internal Medicine; Referring Provider Internal Medicine; Visit Provider Internal Medicine
DX: Z13.29 Encounter for screening for other suspected endocrine disorder (principal)
CPT/HCPCS: 36415; 84439; 84443; 84482

== ENCOUNTER → 2024-07-29 | Outpatient (CLI) | payer OTHER, SELFPAY ==
--- NOTE | 2024-07-29 08:12 | US_ITS ---
INDICATION: Anterior Neck Swelling EXAMINATION: Ultrasound US Thyroid (eg thyroid, parathyroid, parotid) TECHNIQUE: Cueto scale and color doppler imaging was performed of the thyroid gland. COMPARISON: No relevant prior comparison study available FINDINGS: RIGHT THYROID LOBE: 1.4 x 4.5 x 1.8 cm. Homogeneous echotexture with normal vascularity. [No thyroid nodules are present. LEFT THYROID LOBE: 2.1 x 6.3 x 3.0 cm. There is a taller than wide complex 3.6 x 3.7 x 2.7 cm nodule with solid components and internal vascularity. ISTHMUS: 0.34 cm. No thyroid nodules are present. US/Thyroid IMPRESSION: Complex 3.6 x 3.7 x 2.7 cm nodule within the left lobe of the gland. Electronically Signed: Arcelia Kulkarni MD at 16:44 EDT ,
== END | disposition home or self-care (01) ==
PROVIDERS: PCP Internal Medicine; Referring Provider Internal Medicine; Visit Provider Internal Medicine
DX: R22.1 Localized swelling, mass and lump, neck (principal)
CPT/HCPCS: 76536

== ENCOUNTER → 2024-08-28 | Outpatient (CLI) | payer OTHER, SELFPAY ==
[2024-08-28 16:27] LABS: Absolute Lymphocyte Count 3.26 X10^3/uL (0.83-4.51); Basophil# 0.05 X10^3/uL; Basophil% 0.6 % (0-1); Eosinophil# 0.41 X10^3/uL; Eosinophils% 4.9 % (0-5); Hematocrit 44.8 % (37-47); Hemoglobin 14.8 g/dL (12.0-15.0); Lymphocyte # 3.26 X10^3/ul (0.83-4.51); Lymphocyte % 39.1 % (19-41); Mean Corpuscular Hgb 31.7 pg (27.0-32.0); Mean Corpuscular Volume 95.9 fL (81-99); Mean Platelet Vol. 10.4 fl (6.2-12.0); Monocyte# 0.56 X10^3/uL; Monocyte% 6.7 % (0-10); NRBC Flagged by Analyzer 0 % (0-5); Neutrophil # 4.03 X10^3/uL (2.7-7.7); Neutrophil % 48.5 % (47-70); Platelet Count 324 K/mm3 (150-450); RBC Distribution Width CV 12.4 % (11.6-14.6); RBC Distribution Width SD 43.4 fl (35.1-43.9); Red Blood Count 4.67 M/mm3 (4.2-5.4); White Blood Count 8.3 K/mm3 (4.4-11.0)
[2024-08-28 16:51] LABS: AST(SGOT) 11 U/L (15-37); Alanine Aminotransfer ALT/SGPT 22 U/L (13-56); Alkaline Phosphatase 60 U/L (45-117); Anion Gap 7 (5-15); BUN 18 mg/dL (7-18); BUN/Creat Ratio 17.8 RATIO (10-20); Calcium,Total 9.6 mg/dL (8.5-10.1); Chloride 105 mmol/L (98-107); Cholesterol 201 mg/dL (200); Creatinine, Serum 1.01 mg/dL (0.55-1.02); EST Glomerular Filtration Rate 63 mL/min (>60); Est Glom Filt Rate - Afr Amer 76 mL/min (>60); Globulin 3.9 g/dL (2.2-4.2); Glucose 103 mg/dL (74-106); High Density Lipoprotein 57 mg/dL; Potassium 4.2 mmol/L (3.5-5.1); Protein, Total 7.9 g/dL (6.4-8.2); Sodium Level 139 mmol/L (136-145); Triglycerides 174 mg/dL; Very Low Density Lipoprotein 35 mg/dL (5-40)
== END | disposition home or self-care (01) ==
LOC: BIMLAB 15:07
PROVIDERS: PCP Internal Medicine; Referring Provider Internal Medicine; Visit Provider Internal Medicine
DX: Z00.00 Encounter for general adult medical examination without abnormal findings (principal)
CPT/HCPCS: 36415; 80053; 80061; 85025

== ENCOUNTER → 2024-09-01 | Outpatient (CLI) | payer OTHER, SELFPAY ==
--- NOTE | 2024-09-01 | FLU_PTH ---
PATIENT: DESTINY AVELAR LOC: [facility] U#:[id number] AGE/SX: 48/F ROOM: RE09/01/[address]: Dr. Neil Ingram MD : 1975 BED: DIS: 09/01/2024 SPEC #: [id number] RECD: 09/01/24 11:50 STATUS: JACKIE PARTIDA #: [id number] SHWETA: 09/01/24 00:[address]: Neil Ingram DEPT: CYTOLOGY RECD BY: Regis Zuniga ENTERED: 09/01/24 13:29 SP TYPE: Fluid OTHR DR: Dr. Cande Haque MD Tissues: A - Thyroid gland, NOS B - Thyroid gland, NOS D - Thyroid gland, NOS Procedures: Special Stain Group II Surgery Specimen Level IV Cytospin Fluid HEADER OPERATION: Fine needle aspiration of left thyroid nodule PRE-OP DIAGNOSIS: Left thyroid nodule TISSUE SUBMITTED: Left thyroid nodule fluid DIAGNOSIS CYTOLOGY A. Left thyroid nodule fluid, fine needle aspiration (cytospins and cellblock): Consistent with benign cyst contents. See comment. B. Left thyroid nodule fluid, fine needle aspiration (cytospins and cellblock): Macrophages consistent with benign cyst contents. See comment. C. 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 See comment. 09/04/2024 COMMENT A. Rare follicular cells with Hurthle cell features and cystic change are present. Clinical correlation is suggested. B. Rare benign follicular cells are present. Clinical correlation is suggested. C. The [place] System for thyroid diagnostic categorization was used in the evaluation of this case. Per recommendations and a clinician-approved plan (a call was made to the referring doctor about the recommendation), genomic testing (Afirma) has been submitted. Results will be reported as an addendum and faxed to clinician. * All three specimens are from the same left thyroid nodule. CYTOLOGY STUDY Slides are reviewed. CYTOLOGY MADISON Lay is 7 ml of red-cloudy fluid labeled with the patient's name and and designated per the requisition as Left thyroid nodule. Submitted for cytology preparation including cell block. B. Received is 40 ml of red-cloudy fluid labeled with the patient's name and and designated per the requisition as Left thyroid nodule. Submitted for cytology preparation including cell block. C. Received are 4 smears labeled with the patient's name and designated per the requisition as Left thyroid nodule. Submitted for staining. 09/01/2024 TC:5 CPT: 90278n4,04424u7 ADDENDUM ADDENDUM ADDENDUM ADDENDUM ADDENDUM ADDENDUM ADDENDUM ADDENDUM ADDENDUM 09/19/2024 08:27 ADDENDUM 09/19/2024 08:27 ADDENDUM 09/19/2024 08:27 ADDENDUM 09/19/2024 08:27 ADDENDUM 09/19/2024 08:27 AFIRMA RESULTS REPORT RESULTS INTERPRETATION: The result of this 3.7 cm [place] III nodule A is Afirma GSC Suspicious which suggests a risk of cancer of approximately 50%. The risk of malignancy of a GSC Suspicious Afrima XA negative sample remains approximately 50%. Clinical correlation and surgical resection should be considered. Please see complete report in e-chart or EMR
== END | disposition home or self-care (01) ==
LOC: LABSPEC 12:34
PROVIDERS: PCP Internal Medicine; Referring Provider Surgery; Visit Provider Surgery
DX: E04.1 Nontoxic single thyroid nodule (principal)
CPT/HCPCS: 88108; 88305; 88313

== ENCOUNTER 2024-11-28 05:43 | Day surgery (SDC) | payer BC, SELFPAY ==
[2024-11-28] VITALS (12 sets, daily range): BP systolic 121–135; BP diastolic 79–85; PULSE 91–115; RESP 16–18; TEMP 36.4–37.1; O2SAT 91–99; BMI 35.0
--- NOTE | 2024-11-28 | THYROID_PTH ---
PATIENT: DESTINY AVELAR LOC: [facility] U#:[id number] AGE/SX: 49/F ROOM: RE11/28/[address]: Dr. Neil Ingram MD : 1975 BED: DIS: 11/28/2024 SPEC #: [id number] RECD: 11/28/24 12:44 STATUS: JACKIE HERNANDEZJeremiah #: [id number] SHWETA: 11/28/24 00:[address]: Neil Ingram DEPT: SURGICAL PATHOLOGY RECD BY: Brodie Kaminski ENTERED: 11/28/24 12:44 SP TYPE: THYROID OTHR DR: Dr. Cande Haque MD Tissues: Thyroid gland, NOS Procedures: Surgery Specimen Level V HEADER OPERATION: Left thyroid lobectomy with isthmus and intraoperative nerve PRE-OP DIAGNOSIS: Thyroid nodule TISSUE SUBMITTED: Left thyroid lobe * stitch haines left superior pole* MICROSCOPIC DIAGNOSIS Left thyroid lobe and isthmus, lobectomy and isthmectomy: Oncocytic neoplasm of thyroid, consistent with minimally invasive oncocytic carcinoma. Negative resection margin. One benign lymph node. See cancer summary in the comment section. 12/08/2024 COMMENT THYROID CANCER SUMMARY Procedure: Lobectomy and isthmectomy Tumor Focality: Unifocal Tumor Site: left lobe Tumor Size: 2 x 2 x 1.5 cm Histologic Type: Minimally invasive onococytic carcinoma Margins: Margins are free of tumor. The tumor is <1mm from closest anterior margin. Angioinvasion: Not identified Lymphatic Invasion: Not identified Perineural invasion: Not identified Extrathyroidal Extension: Not identified Regional Lymph Nodes: Number of lymph nodes Examined: 1 Number of Lymph nodes involved: 0 Maria Del Rosario Levels examined: Perithyroidal lymph node, level IV Distal metastases: Not applicable Ancillary Studies: Please refer to consult report from [facility] Additional Pathologic Findings: None Clinical History: Please make reference to previous specimen [id number] left thyroid nodule, fine needle aspiration with diagnosis of atypical follicular cells with Hurtle cell features and cystic change. PATHOLOGIC STAGE: pT1b pN0 pMx The above summary is in compliance with [employer] (CAP) Cancer Protocols Checklist and [place] Joint Committee on Cancer (AJCC), Staging Manual, 8th Ed. This case has been reviewed in consultation with Dr. Delaney who concurs with the above diagnosis. IDC:PW The specimen is sent to [facility] for expert opinion, reviewed by Dr. Blackburn and the above diagnosis is rendered. The complete report is viewable in the patient's EMR. MICROSCOPIC DESCRIPTION Slides are reviewed. GROSS DESCRIPTION Received in fixative is one container labeled with the patient's name and designated Left thyroid lobe. The specimen consists of a thyroid lobectomy and isthmectomy with specimen weighing 10.9gm. Left thyroid lobe measures 4.5 x 2.8 x 1.5cm and the isthmus measures 2.5 x 0.6 x 0.2cm. The specimen is inked as follows: superior surface, left lobe and isthmus- blue, posterior surface, left lobe and isthmus - black, isthmic resection margin - yellow. Serial sections reveal a hemorrhagic nodule in the middle and lower portion of the lobe of the thyroid lobe measuring 2.0 x 2.0 x 1.5cm. The entire specimen is submitted in ten cassettes. Cassette 1 contains the isthmus. Cassette 2 contains the most superior portion of the thyroid lobe and cassette 10 contains the most inferior portion of the thyroid lobe. 11/29/2024 TC:0 CPT:94539
[2024-11-28 06:23] LABS: Internal QC Validated? YES +Cl - CLEAR BKGD; Pregnancy, Urine Negative Negative
[2024-11-28] MEDS: 0.9% Normal Saline (1000mL) 1,000 ML 15 ML IV (06:29)
--- NOTE | 2024-11-28 06:44 | PRE.ANES_ITS ---
ASA Classification* ASA Classification ASA Classification: 2 Assessment & Plan Anesthesia* Anesthesia Assessment Anesthesia Assessment: Discussed sedation and/or anesthesia options, risks, benefits, and alternatives with patient/parents/legal guardian/POA. Questions invited. The patient/parents/legal guardian/POA seems to understand and agrees to proceed with anesthesia plan. Reviewed the physical assessment, medical history, allergy history and patient home medications list prior to surgery/procedure/anesthetic and documented any changes. Performed airway and anesthesia risk assessments. Anesthesia Type Anesthesia Type: General History Source History Obtained from:: Patient and Chart Anesthesia Focused Assessment* Temperature: 98.7 F Pulse Rate: 91 Blood Pressure: 121/85 Respiratory Rate: 16 Pulse Ox: 99 Oxygen Delivery Method: Room Air Airway Assessment Mouth opens: >3 cm Mallampati Score: III Teeth Condition: Intact Neck Range of motion (ROM): Full ROM Focused Labs Anesthesia Preop lab: CBC WBC 8.3 K/mm3 (4.4-11.0) 08/28/24 15:07 RBC 4.67 M/mm3 (4.2-5.4) 08/28/24 15:07 Hgb 14.8 g/dL (12.0-15.0) 08/28/24 15:07 Hct 44.8 % (37-47) 08/28/24 15:07 Plt Count 324 K/mm3 (150-450) 08/28/24 15:07 CHEMISTRY Potassium 4.2 mmol/L (3.5-5.1) 08/28/24 15:07 Sodium 139 mmol/L (136-145) 08/28/24 15:07 BUN 18 mg/dL (7-18) 08/28/24 15:07 Creatinine 1.01 mg/dL (0.55-1.02) 08/28/24 15:07 Glucose 103 mg/dL (74-106) 08/28/24 15:07 TSH 2.080 uIU/mL (0.358-3.740) 07/10/24 15:41 COAG Urine Test Negative Negative 11/28/24 05:54 Tst Clinic Negative 01/19/24 11:43 Pre-Assessment Diagnosis/Proposed Procedure Planned Operative Procedure(s): LEFT THYROID LOBECTOMY WITH ISTHMUSECTOMY WITH NERVE MONITORING Anesthesia History 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 When Was Last Pacemaker Check QUESTION #4 FULL TEXT: You/Your Family Experience fever (hyperthermia) with Anesthesia Last Oral Intake Last Oral intake: Last Oral Intake NPO since 21:00 11/28/24 06:19 Meds taken in AM with sips of water? Meds patient instructed to take am of surgery PONV PONV - electrical development engineer: PONV - electrical development engineer Female Yes 11/13/24 15:02 HX of Motion Sickness Yes 11/13/24 15:02 HX of N/V After Surgery No 11/13/24 15:02 Non-Smoker Yes 11/13/24 15:02 Duration of Surgery greater Yes 11/13/24 15:02 than 60 minutes Number of Risk Factors 4 11/13/24 15:02 PONV Score Severe Risk 11/13/24 15:02 Height & Weight Height & Weight: Anesthesia: Height & Weight Height 5 ft 6 in 11/28/24 06:19 Weight: 98.4 kg 11/28/24 06:19 Body Mass Index (BMI) 35.0 11/28/24 06:19 Respiratory Assessment Respiratory Assessment - electrical development engineer: Respiratory Tract Infection Hx - electrical development engineer Hx Respiratory Tract Infection Yes: NO FEVER/CHEST 11/13/24 15:02 CONGESTON Any additional information?: Yes Hx Respiratory Tract Infection: Yes (Patient is recovering from a lingering cold. Lungs are clear.) STOP Sleep Apnea STOP Sleep Apnea - electrical development engineer: STOP Sleep Apnea - electrical development engineer Hx Hypertension Yes: CONTROLLED WITH MED 11/13/24 15:02 Hx Sleep Apnea No 11/13/24 15:02 CPAP BIPAP Do you snore loudly (louder No 11/13/24 15:02 than talking or can be heard Do you often feel tired/ No 11/13/24 15:02 fatigued/ sleepy during daytime? Has anyone observed you stop No 11/13/24 15:02 breathing during sleep? STOP Results Negative 11/13/24 15:02 QUESTION #5 FULL TEXT : Do you snore loudly (louder than talking or can be heard through closed doors)? Tobacco Use History Tobacco Use History - electrical development engineer: Tobacco Use History - electrical development engineer Tobacco Use Smoking Status Never smoker 11/13/24 15:02 Hx Tobacco Use No 11/13/24 15:02 Years Smoking Packs Smoked per Day Smoking Cessation Date was within the last 15 years Hx Smoking Cessation Date Hx Smoking Cessation Counseling Hematologic Medial History Hematologic Hx - electrical development engineer: Hematologic Medical Hx - rewinder Hx of Blood Transfusion No 11/13/24 15:02 Hx of Transfusion in last 3 No 11/13/24 15:02 Months Date of Last Transfusion (if within last 3 months) Ever experience any problems No 11/13/24 15:02 with transfusion(s)? Specify any problems Hx of Preganancy in last 3 No 11/13/24 15:02 Months Nurse Filling Out Transfusion DSCHRIBER 11/13/24 15:02 & Questions: Date: 11/13/24 11/13/24 15:02 Time: 15:03 11/13/24 15:02 Patient unable to answer at this time (ie. confused, unrespo /Reproduction History /Reproductive History - electrical development engineer: /Reproductive Hx- electrical development engineer Hx Now No 11/13/24 15:02 Gestational Age (in weeks): EDC: Hx Hx Para Hx Section SAB No 11/13/24 15:02 Active Medications Active Medications: Current Medications Generic Name Dose Route Start Last Admin Trade Name Freq PRN Reason Stop Dose Admin Sodium Chloride 1,000 mls @ 15 mls/hr 11/28/24 06:00 11/28/24 06:29 IV 12/03/24 19:19 15 mls/hr .Q48H CLINT Administration Protocol [facility] Medical History Wears glasses Back pain Blackout Heartburn Non-smoker Preventative health care Thyroid nodule Screening for thyroid disorder Localized swelling, mass and lump, neck Hypertension Psoriasis History of fracture of finger Home Medications ?Medication ?Instructions ?Recorded ?Last Taken ?Type loratadine 5 mg/5 mL oral solution 10 mg PO DAILY PRN allergy symptoms 04/01/23 Unknown History (Allergy Relief (loratadine)) multivitamin 1 tab PO DAILY 04/01/23 Unknown History amlodipine 5 mg tablet 2.5 mg (1/2 x 5 mg) PO DAILY #30 11/01/24 11/28/24 05:10 Rx tabs levonorgestrel (Mirena) 1 device intrauterine DAILY 11/13/24 Unknown History Allergy/AdvReac Type Severity Reaction Status Date / Time No Known Allergies Allergy Verified 11/13/24 15:00 Family History Father Anemia Hypertension Psoriasis Sister Anemia Asthma Thyroid disorder Mother Asthma Aunt Lupus Grandfather Diabetes Hypertension Grandmother Diabetes Hypertension Surgical History H/O arthroscopic knee surgery History of tonsillectomy Social History household members: spouse current occupational status: employed current occupation: [employer] Smoking Status: Never smoker alcohol intake: never substance use type: does not use what type of physical activity do you participate in: none seatbelt use: always do you feel safe at home: Yes 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
--- NOTE | 2024-11-28 07:09 | PCM.HP.BLA ---
History and Physical Date of Admission: 11/28/24 Date of Service: 09/29/24 MR#: [id number] Acct: [id number] Name: DESTINY AVELAR Rep #: [id number] : 1975 Provider: Dr. Neil Ingram MD Age/Sex: 48/F Location: [facility] Status: Signed Intake Vital Signs 09/01/2408:08 09/29/2408:14 Height 5 ft 6 in 5 ft 6 in Weight: 216 lb 218 lb BMI 34.8 35.2 BP 133/88 H 113/76 Blood Pressure Location Rt brachial Rt brachial Position Sitting Sitting Respiration 18 18 Pulse 76 63 Pulse Source Monitor Monitor Temp 98.6 F 97.2 F L Temp Source Temporal Temporal Pulse Oximetry (%) 98 97 Oxygen Delivery Method room air room air Intake Visit Reasons: DISCUSS SURGERY Chief Complaint: discuss surgery Is patient in pain?: No Allergies No Known Allergies Allergy (Verified 09/29/24 08:14) Medications ?Medication ?Instructions ?Recorded ?Confirmed ?Type loratadine 5 mg/5 mL oral solution 10 mg PO DAILY PRN 04/01/23 09/29/24 History (Allergy Relief (loratadine)) multivitamin 1 tab PO DAILY 04/01/23 09/29/24 History amlodipine 5 mg tablet 2.5 mg (1/2 x 5 mg) PO DAILY #30 07/10/24 09/29/24 Rx tabs PFSH Medical History Preventative health care Thyroid nodule Screening for thyroid disorder Localized swelling, mass and lump, neck Hypertension Psoriasis History of fracture of finger Borderline high blood pressure Seasonal allergies Surgical History H/O arthroscopic knee surgery History of tonsillectomy Family History Father Anemia Hypertension PsoriasisSister Anemia Asthma Thyroid disorderMother AsthmaAunt LupusGrandfather Diabetes HypertensionGrandmother Diabetes Hypertension Social History household members: spouse current occupational status: employed current occupation: [employer] Smoking Status: Never smoker alcohol intake: never substance use type: does not use what type of physical activity do you participate in: none seatbelt use: always do you feel safe at home: Yes 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 They are referred for surgical consultation from Dr. Haque. Initial consult visit was 09/01/2024. Patient presents today in follow-up of a biopsy at that visit which ultimately showed atypical cytopathology and subsequent genomic assay was deemed as suspicious. She denies any interval health updates but does share that she is in transition with her insurance coverage. Below is recapitulated from patient's initial consultation visit for ease review: Patient is a 48-year-old female who presents for evaluation of a left thyroid nodule. They are referred for surgical consultation from Dr. Haque. This was discovered incidentally following a cold. Patient shares that she only appreciated a growth on the left side of her neck. She also states that it was always nontender. They do not experience difficulty with swallowing. They do complain of a new cough that started over the summer but is now largely dissipated. They do not appreciate new voice changes. They do have a history of snoring/sleep apnea. Additionally, their weight has been steadily increasing despite intentional effort at watching calories (patient states that her activity level has remained stable). There is no history of recent fatigue. They do not have a history of heat or cold intolerance. Other symptoms include: Pertinent negatives no palpitations, no anxiety, stable GI habits. They do have a family history of thyroid disorders and shared that their sister was describing to them that she found her thyroid had and she now takes medication for hypothyroidism. Previous work-up has included thyroid ultrasound. This study was performed on 07/29/2024 and showed a right thyroid lobe measuring 4.5 x 1.8 x 1.4 cm. Within this lobe radiology identified no nodules. The left thyroid lobe measured 6.3 x 3.0 x 2.1 cm. Within this lobe radiology identified a nodule measuring 3.7 x 3.6 x 2.7 cm with a complex appearance and described as taller than wide. Notably no TI-RADS rating was given by radiology. An FNA has not been performed. Other tests include: TSH: 2.08, free T4: 0.78 (collected 07/10/2024). ROS General General: No weight change, appetite, fatigue, colon cancer, breast cancer or weakness HEENT HEENT: No difficulty swallowing, eye injury, eye surgery, swollen glands or hoarseness Endo Endocrine: No thyroid disease, diabetes mellitus, thyroid cancer, Hair loss, heat intolerance or cold intolerance Skin Skin: No rash or changing moles Musc Musculoskeletal: No back problems, arthritis, rheumatoid arthritis, gout or joint pain Cardio Cardiovascular: Yes high blood pressure; No murmur, pacemaker, heart disease, atrial fibrillation, heart attack, heart stent, palpitations, shortness of breat with exertion or chest pain Psych Psychiatric: No depression, anxiety or hearing voices Resp Respiratory: No shortness of breath, No sleep apnea, No cough, No COPD, No asthma, No emphysema and No wheezing Gastro Gastrointestinal: No abdominal pain, No nausea or vomiting, No diarrhea, No constipation, No blood in stool, No acid reflux, No hemorrhoids, No ulcers, No gallbladder problem and No black,tarry stools Josef Hematologic: No blood thinners, No blood disorders, No bleeding, No anemia and No blood clots Neuro Neurologic: No numbness, No tingling and No weakness Exam Const General: cooperative, healthy appearing, comfortable and no acute distress Neck Other: Completely healed biopsy site with persistent left thyroid nodule Assessment and Plan Assessment and Plan (1) Thyroid nodule: Status: Acute Comment: Patient is a 48-year-old female, euthyroid from an endocrine standpoint, who is referred for surgical consultation after an incidental finding of left thyroid nodule which seem to develop after a cold illness. Given patient's history I find it suspicious that her nodule temporarily after an illness and this could be a manifestation of thyroiditis. Indeed, during her procedure, I was able to aspirate a significant amount of colloid material?indicating a mixed composition to her nodule. I did ultimately give her a TI-RADS 4 rating for this nodule based on its characteristics of mixed composition, shape taller than wide, and overall hypoechogenicity. No TI-RADS rating was formally given by radiology. At this TI-RADS rating and patient's maximal dimension exceeding 1.5 cm I agreed with radiology's recommendation to pursue FNA biopsy. Patient was receptive this recommendation and the procedure was undertaken uncomplicated fashion during today's visit. Complete details are given in the procedures section of this note. Update 09/29/2024: Patient's left-sided TI-RADS 4 nodule ended up has returning Afirma suspicious. With this level of suspicion and patient's otherwise acceptable candidacy for surgery I do recommend proceeding with surgical resection. Further, I recommend proceeding with left thyroid lobectomy and isthmusectomy using intraoperative nerve monitoring. The rationale for this recommendation was made based on guidance from the 2015 [place] [employer] recommendations to proceed with lobectomy over total thyroidectomy for masses less than 4 cm in greatest dimension. I did caution patient that postoperative pathology could find the mass to exceed the 4 cm threshold at a microscopic level?thereby potentially indicating the need for completion thyroidectomy. I then went on to discuss the procedure?specific risks of recurrent laryngeal nerve injury and hypoparathyroidism. Drawings were made to illustrate these points. I used this then as a platform to discuss the differences in risk between a total thyroidectomy and lobectomy as a consequence of fractional exposure with total thyroidectomy representing double the exposure/double the risk for both of these procedure?specific risks. Patient was receptive of my recommendation and wishes to proceed, however, she would like to do so after the new year due to her insurance situation. Plan: Left thyroid lobectomy with isthmusectomy using intraoperative nerve monitoring to be completed with expected outpatient disposition. Operative date targeting early November 2024. I have examined the patient and the H&P has been reviewed. There are no clinical changes since date of exam. Operative plan and postprocedure expectations were reviewed. All questions were answered from patient and her sister was present in the room. Will now proceed to the operating room for planned left thyroid lobectomy with isthmusectomy using intraoperative nerve monitoring.
[2024-11-28] MEDS: Bupivacaine 0.25% 30 ML Vial (08:10)
--- NOTE | 2024-11-28 10:49 | OP.PCM_ITS ---
Operative Report (Standard) Operative Information Date of Procedure: 11/28/24 Pre-Operative Diagnosis: Suspicious left thyroid nodule Post-Operative Diagnosis: Same Surgery/Procedure Performed: Left thyroid lobectomy with isthmusectomy using intraoperative nerve monitoring mold bunch trimmer: Yes Occupational Therapist Assistants: Rogerio Lang Tasks completed by first coat operator: Opening & closing and Retracting Type of Anesthesia: General/Supplemental RN Documented Start/Stop Times: Operation Date: 11/28/24 07:30 Case Time Into Pre-Op 11/28/24 05:55 Out of Pre-Op 11/28/24 07:22 Anesthesia Start 11/28/24 07:26 Into Room 11/28/24 07:26 Procedure Start 11/28/24 08:04 Procedure End 11/28/24 10:49 Anesthesia End 11/28/24 10:56 Out of Room 11/28/24 10:56 Into Recovery 11/28/24 11:00 Procedure Start Time: 08:04 Procedure Stop Time: 10:49 Select all DRAINS/GRAFTS/IMPLANTS that apply: None Estimated Blood Loss: 30 Specimen collected: Yes Description of specimen(s) removed: Left thyroid lobe and isthmus (with attached pyramidal lobe) Description of surgery: After appropriate identification in the preoperative holding area, the patient was brought to the operating room where she was positioned supine on the operating room table. Induction of general endotracheal anesthetic was begun and a NIMS tube was placed under glidescope view to confirm coaptation with the vocal cords anteriorly. Tube was then secured and the patient was positioned with a shoulder roll so that her head was in extension but supported. The Nims electrodes were placed and connected to the monitor. We had appropriate resistance showing on the monitor and tapping at the level of the cricoid produce a graphical representation of the impulse on the monitor. Patient's neck was then prepped and draped in usual sterile fashion and a formal timeout was conducted from those present. The lowest skin fold to the sternal notch was selected for incision site (this resided approximately 3 fingerbreadths cephalad to the notch). An incision was extended for 3 cm on either side of midline. Electrocautery was used to deepen this incision through the level of the platysma. Subplatysmal flaps were raised with the use of electrocautery and blunt dissection. The strap muscles were then divided along the medial raphe bringing us down to the level of the thyroid. Capsular attachments to the thyroid were divided with the use of LigaSure and found to be somewhat more tenacious than average. Retractors were placed providing visualization of the left superior pole of the thyroid. The vessels of the superior pole were sequentially ligated with the use of the LigaSure device. We then moved inferiorly and divided those polar vessels with LigaSure. The inferior parathyroid gland was grossly visualized and preserved with this division. With the poles freed the thyroid was mobilized medially and the middle thyroid vein was divided. Given the larger size of this lobe I sought to develop the dissection lateral to the carotid and identify the vagus nerve. However, the sternothyroid muscle was not easily and I was unable to clearly visualize the nerve or elicit a signal on the left vagus. Therefore this attempt was abandoned and I began an [id number] dissection. I bluntly the remaining strap muscle fibers from the thyroid capsule and using blunt dissection parallel to the presumed course of the recurrent laryngeal nerve, exposed the tracheoesophageal groove. Here I encountered the superior parathyroid gland but was unable to initially elicit a positive signal for the left recurrent laryngeal nerve. After I continued this tedious dissection mobilizing the inferior pole and the superior pole to the anterior surface of the trachea I then, again, explored the soft tissue between the parathyroid glands adjacent to the small tubercle of Zuckerkandl. Here I visualized a pearlescent left recurrent laryngeal nerve and was shortly thereafter able to elicit a strong Nims signal. The nerve positively identified, I relieved the attachments of the thyroid gland to the underlying trachea with the use of LigaSure. As we again approached the nerve insertion of the cricothyroid membrane, I elected to leave a minuscule amount of thyroid tissue intact superiorly and inferiorly using 4-0 silk ligatures. The recurrent laryngeal nerve signal was checked prior to the division of any thyroid tissue. In the cephalad portion of the incision, I did encounter a superiorly extending pyramidal lobe. This was dissected on either side and taken en bloc with the specimen. Once I had assured clearance from the nerve, the remaining thyroid tissue was removed from the anterior surface of the trachea with electrocautery to include the entirety of the thyroid isthmus. The specimen was divided with the LigaSure device for hemostasis. Specimen was oriented with a stitch placed through the superior pole then passed off the field for permanent pathology. Pressure was applied to the surgical cavity and there was some slight oozing along the anterior surface of the trachea well away from the recurrent laryngeal nerve where selective electrocautery was applied. Closer to the nerve there was some additional oozing and Surgicel hemostatic agent was placed while pressure was applied. Once this pressure was relieved, the surgical cavity was again inspected and we found hemostasis to be intact. We also confirmed the presence of both the superior and inferior parathyroid gland as well as a well-functioning recurrent laryngeal nerve. Satisfied with this result, the strap muscles were closed with a running 3-0 Vicryl stitch leaving a small gap at the inferior aspect of the suture line. The platysmal flaps were closed with interrupted 3-0 Vicryl. Some additional local anesthetic was infiltrated throughout the dermis and the skin was closed in a subcuticular fashion using 4-0 Monocryl. Steri-Strips were applied. Telfa and Tegaderm were used as a dressing. The patient was then awakened from anesthetic without event and was taken to PACU for ongoing recovery. Surgical Findings: ? Grossly intact left superior and inferior parathyroid glands ? Grossly and functionally confirmed left recurrent laryngeal nerve with strong Nims signal ? Denser than normal attachments of the strap muscles to the thyroid capsule anteriorly and laterally ? Firm inferior pole nodule Complications Complications: No Admit VTE Documentation VTE Mechan Device Prophylaxis: SCD's
--- NOTE | 2024-11-28 10:52 | DCINST_ITS ---
Discharge Instructions Diet Discharge Diet: No restrictions (However recommend a liquid to soft diet initially postoperatively) Activity Discharge Activity: May Not Drive (While it remains difficult to check blind spots quickly) May shower in (days): 2 Ice area for (Minutes): 20 Lifting Restrictions: No lifting greater than 15 pounds for 2 weeks after surgery Dressing / Incision Call your doctor if your incision/area has: Continuous Slow Oozing, Sudden Increased Bleeding, Increased Pain/ Swelling, Increased Redness and Swelling at the incision site Call your doctor if you observe: Numbness or Tingling Remove Dressing in: 2 days (Please leave Steri-Strips intact until they fall off spontaneously or are taken off at your follow-up visit) Cleanse incision/area with: Soap & Water Follow Up Care Please Follow Up With: Neil Ingram MD When: 7-10 days postop Test Results: Test results from this visit will be discussed in further detail at your follow- up appointment, if applicable. Discharge Plan Admission Primary Reason for Your Visit: Thyroid lobectomy Attending Provider: Neil Ingram Primary Care Provider: Cande Haque Instructions Print Language: Citizen Of [place] Discharge Orders/Prescriptions Prescriptions: Continued loratadine [Allergy Relief (loratadine)] 5 mg/5 mL solution 10 mg PO DAILY PRN (Reason: allergy symptoms) multivitamin Tablet 1 tab PO DAILY Mirena 21 mcg/24hr (up to 8 yrs) 52 mg intrauterine device 1 device intrauterine DAILY amlodipine 5 mg tablet 2.5 mg PO DAILY Qty: 30 0RF Referrals / Follow Up: Cande Haque MD [Primary Care Provider] - Disposition Disposition (needs filled in before D/C Order can be placed): Home, Self Care
--- NOTE | 2024-11-28 14:33 | PCM.POST.ANE ---
Anesthesia: Postop Eval I Current Vital Signs Temperature: 97.6 F Pulse Rate: 105 Blood Pressure: 135/80 Respiratory Rate: 18 Pulse Ox: 96 Oxygen Delivery Method: Room Air Assessment Airway patent: Yes Spontaneous unlabored respirations: Yes Mental status: Awake and Calm nausea: No Vomiting: No Anesthesia Complication: No Fluid Hydration Crystalloid volume administer (ml): 1,200 Total IV fluid infused: 1,200 Progress Note Anesthesia document: Postop Eval 1 completed: Yes
--- NOTE | 2024-11-28 16:54 | POSTOPAN2_ITS ---
Anesthesia Postop Eval I Sum Postop Eval Completion status Anesthesia document: Postop Eval 1 completed: Yes Anesthesia Postop Eval I Summary Anesthesia Postop Eval I Summary: Anesthesia Postop Eval I: Assessment Summary Airway patent Yes 11/28/24 14:35 CRANBERRY BOG [email or web address] Spontaneous unlabored Yes 11/28/24 14:35 CRANBERRY BOG [email or web address] respirations Mental status Awake,Calm 11/28/24 14:35 CRANBERRY BOG [email or web address] nausea No 11/28/24 14:35 CRANBERRY BOG [email or web address] Vomiting No 11/28/24 14:35 CRANBERRY BOG [email or web address] Anesthesia Postop Eval I: Fluid Summary Crystalloid volume administer 1,200 11/28/24 14:35 CRANBERRY BOG [email or web address] (ml) Colloids volume administered ( ml) Blood Product volume administered (ml) Total IV fluid infused 1,200 11/28/24 14:35 CRANBERRY BOG [email or web address] Anesthesia Postop Eval I: Summary Notes Anesthesia Complication No 11/28/24 14:35 CRANBERRY BOG [email or web address] Anesthesia Complication Comment: Post-operative progress note Anesthesia: Postop Eval II Evaluation Mental status: Awake and Calm Pain Level: 1 nausea: No Vomiting: No Complications Anesthesia Complication: No
--- NOTE | 2024-11-28 16:54 | PCM.POSTANE2 ---
Anesthesia Postop Eval I Sum Postop Eval Completion status Anesthesia document: Postop Eval 1 completed: Yes Anesthesia Postop Eval I Summary Anesthesia Postop Eval I Summary: Anesthesia Postop Eval I: Assessment Summary Airway patent Yes 11/28/24 14:35 ACQUISITION [email or web address] Spontaneous unlabored Yes 11/28/24 14:35 ACQUISITION ANALYST.[email or web address] respirations Mental status Awake,Calm 11/28/24 14:35 ACQUISITION ANALYST.[email or web address] nausea No 11/28/24 14:35 ACQUISITION ANALYST.[email or web address] Vomiting No 11/28/24 14:35 ACQUISITION [email or web address] Anesthesia Postop Eval I: Fluid Summary Crystalloid volume administer 1,200 11/28/24 14:35 ACQUISITION ANALYST.[email or web address] (ml) Colloids volume administered ( ml) Blood Product volume administered (ml) Total IV fluid infused 1,200 11/28/24 14:35 ACQUISITION ANALYST.[email or web address] Anesthesia Postop Eval I: Summary Notes Anesthesia Complication No 11/28/24 14:35 ACQUISITION [email or web address].[email or web address] Anesthesia Complication Comment: Post-operative progress note Anesthesia: Postop Eval II Evaluation Mental status: Awake and Calm Pain Level: 1 nausea: No Vomiting: No Complications Anesthesia Complication: No
== END 2024-11-28 14:29 | disposition home or self-care (01) ==
LOC: SDC 05:45 → AC 05:45
PROVIDERS: Anesthesiology; PCP Internal Medicine; Referring Provider Surgery; Visit Provider Surgery
PROC: (CPT 60210; principal; 2024-11-28 07:15)
DX: C73 Malignant neoplasm of thyroid gland (principal); I10 Essential (primary) hypertension; Z79.899 Other long term (current) drug therapy
CPT/HCPCS: 60210; 00320; 81025; 88307; J2405

== ENCOUNTER → 2025-01-17 | Outpatient (CLI) | payer BC, SELFPAY ==
[2025-01-17 10:02] LABS: Free T3 2.8 pg/mL (2.18-3.98)
== END | disposition home or self-care (01) ==
LOC: PAVLAB 09:09
PROVIDERS: PCP Internal Medicine; Referring Provider Surgery; Visit Provider Surgery
DX: E89.0 Postprocedural hypothyroidism (principal)
CPT/HCPCS: 36415; 84436; 84443; 84481

== ENCOUNTER → 2025-05-07 | Outpatient (CLI) | payer OTHER, SELFPAY ==
--- NOTE | 2025-05-07 11:50 | US_ITS ---
PROCEDURE: THYROID 05/07/2025 REASON FOR EXAM: ASSESS RIGHT LOBE FOR NODULES TECHNIQUE: THYROID COMPARISON: 07/29/2024 FINDINGS: Right thyroid lobe size: 4.2x2.1x1.9 Cm. It shows homogenous echopattern. Inferior pole isoechoic nodule measuring 0.4x0.4x0.3 cmis seen. Left thyroid lobe: Removed. Isthmus: Not seen. US/Thyroid IMPRESSION: Newly appreciated right lobe solid TR3 nodule. Left thyroid lobectomy. New as compared. RECOMMENDATION: Based on most suspicious nodule. Nodule size = largest diameter Only evaluate nodule if =>5 mm. Growth > 20% in 2 dimensions = worsening. Follow up to 4 nodules. Recommend biopsy for no more than 2 nodules. Reading [facility]
== END | disposition home or self-care (01) ==
LOC: US 11:48
PROVIDERS: PCP Internal Medicine; Referring Provider Internal Medicine Endocrinology, Diabetes & Metabolism; Visit Provider Internal Medicine Endocrinology, Diabetes & Metabolism
DX: C80.1 Malignant (primary) neoplasm, unspecified (principal)
CPT/HCPCS: 76536

== ENCOUNTER → 2025-05-11 | Outpatient (CLI) | payer OTHER, SELFPAY ==
[2025-05-13 07:07] LABS: Thyroid Peroxidase AB < 9 IU/mL (0-34)
== END | disposition home or self-care (01) ==
LOC: LAB 14:57
PROVIDERS: PCP Internal Medicine; Referring Provider Internal Medicine Endocrinology, Diabetes & Metabolism; Visit Provider Internal Medicine Endocrinology, Diabetes & Metabolism
DX: C80.1 Malignant (primary) neoplasm, unspecified (principal)
CPT/HCPCS: 36415; 84439; 84443; 86376